=== PATIENT | male | born 1955 | race Caucasian/White ===

== ENCOUNTER 2023-08-26 12:48 | Emergency (ER) | payer MEDICARE, OTHER, SELFPAY ==
[2023-08-26] VITALS (12 sets, daily range): BP systolic 147–165; BP diastolic 79–101; PULSE 88–96; RESP 18; TEMP 36.8; O2SAT 95–98; BMI 30.5
[2023-08-26 13:08] LABS: Glucose, Point-of-Care* 228 mg/dl (60-115)
--- NOTE | 2023-08-26 13:08 | CRLHL7_ITS ---
For Patients: As a result of the Century Cures Act, medical imaging exams and procedure reports are released immediately into your electronic medical record. You may view this report before your referring provider. If you have questions, please contact your health care provider. CT HEAD DATE: 08/26/2023 CLINICAL HISTORY: Patient with vision changes. TECHNIQUE: Standard CT scanning of the head was performed. COMPARISON: None. FINDINGS: There is no intracranial hemorrhage. There is no territorial infarction. There are mild microangiopathic changes. There is diffuse parenchymal volume loss. There is no mass effect or midline shift. The calvarium is unremarkable. The orbits are unremarkable. The paranasal sinuses are unremarkable. The mastoid air cells are unremarkable. The soft tissues are unremarkable. IMPRESSION: 1. No intracranial hemorrhage or territorial infarction. 2. Mild microangiopathic changes and diffuse parenchymal volume loss. Please note that all CT scans at this facility use dose modulation, iterative reconstruction, and/or weight-based dosing when appropriate to reduce radiation dose to as low as reasonably achievable. Dictated by: Jackeline Mays MD @ 08/26/2023 13:57:01 (Electronically Signed)
--- NOTE | 2023-08-26 13:08 | CRLHL7_ITS ---
For Patients: As a result of the Century Cures Act, medical imaging exams and procedure reports are released immediately into your electronic medical record. You may view this report before your referring provider. If you have questions, please contact your health care provider. CT ANGIOGRAM HEAD DATE: 08/26/2023 CLINICAL HISTORY: Patient with vision changes. TECHNIQUE: Standard helical CT image acquisition through the intracranial circulation following intravenous administration of contrast material with bolus tracking. 2D and 3D MIP images for post-processing were performed and interpreted on an independent workstation and 3D images were permanently archived. COMPARISON: CT same day. FINDINGS: There is no proximal intracranial large vessel occlusion. There is intracranial atherosclerosis with a focal severe stenosis in the proximal basilar artery. There is no intracranial aneurysm. The right internal carotid artery is normal. The right middle cerebral artery and its branches are normal. The right anterior cerebral artery and its branches are normal. The left internal carotid artery is normal. The left middle cerebral artery and its branches are normal. The left anterior cerebral artery and its branches are normal. The anterior communicating artery is well visualized and appears normal. The right vertebral artery and PICA are normal. The left vertebral artery and PICA are normal. The left vertebral artery is dominant. The right posterior cerebral artery is normal. The left posterior cerebral artery is normal. The visualized venous structures are patent. IMPRESSION: 1. No proximal intracranial large vessel occlusion. 2. Intracranial atherosclerosis with a focal severe stenosis in the proximal basilar artery. Please note that all CT scans at this facility use dose modulation, iterative reconstruction, and/or weight-based dosing when appropriate to reduce radiation dose to as low as reasonably achievable. Dictated by: Jackeline Mays MD @ 08/26/2023 14:03:19 (Electronically Signed)
--- NOTE | 2023-08-26 13:08 | CRLHL7_ITS ---
For Patients: As a result of the Century Cures Act, medical imaging exams and procedure reports are released immediately into your electronic medical record. You may view this report before your referring provider. If you have questions, please contact your health care provider. CT ANGIOGRAM NECK DATE: 08/26/2023 CLINICAL HISTORY: Patient with vision changes. TECHNIQUE: Standard helical CT image acquisition of the neck up to the skull base after bolus intravenous contrast enhancement. 2D and 3D MIP images for post-processing were performed and interpreted on an independent workstation and 3D images were permanently archived. COMPARISON: CT same day. FINDINGS: The origins of the great vessels from the aortic arch are patent. The origin of the right vertebral artery is patent. The origin of the left vertebral artery demonstrates mild narrowing. The common carotid arteries are patent. There is plaque without stenosis at the origin of the right internal carotid artery by NASCET criteria. There is a mild (<50%) stenosis at the origin of the left internal carotid artery by NASCET criteria caused by non-calcified plaque with a >2mm residual lumen. The rest of the cervical segments of the internal carotid arteries are patent up to the skull base. The left vertebral artery is dominant. The cervical segments of the vertebral arteries are patent up to the skull base. The visualized lung apices are unremarkable. The thyroid gland is unremarkable. The soft tissues of the neck are unremarkable. There are degenerative changes in the cervical spine. IMPRESSION: 1. Mild (<50%) stenosis at the origin of the left internal carotid artery by NASCET criteria caused by non-calcified plaque with a >2mm residual lumen. 2. Mild left vertebral artery origin stenosis. Please note that all CT scans at this facility use dose modulation, iterative reconstruction, and/or weight-based dosing when appropriate to reduce radiation dose to as low as reasonably achievable. Dictated by: Jackeline Mays MD @ 08/26/2023 14:00:43 (Electronically Signed)
[2023-08-26 13:26] LABS: Basophils Absolute Auto 0.06 K/uL (0.00-0.30); Basophils Percent Auto 0.8 % (0.0-3.0); Eosinophils Absolute Auto 0.26 K/uL (0.00-0.50); Eosinophils Percent Auto 3.5 % (0.0-7.0); Hematocrit 50.1 % (37.0-53.0); Hemoglobin* 17.5 gm/dL (13.5-17.5); Immature Granulocytes Abs Auto 0.01 K/uL (0.00-0.30); Immature Granulocytes Pct Auto 0.1 %; Lymphocytes Absolute Auto 1.82 K/uL (0.90-2.90); Lymphocytes Percent Auto 24.2 % (20-44); Mean Corpuscular HGB Conc 35 gm/dL (32-36); Mean Corpuscular Hemoglobin 33 pg (26-34); Mean Corpuscular Volume 94 fL (80-100); Monocytes Percent Auto 7.3 % (0.0-11.0); Neutrophils Absolute Auto 4.81 K/uL (1.7-7.0); Neutrophils Percent Auto 64.1 % (42.0-72.0); Platelet Count* 242 K/uL (140-440); Red Blood Count 5.36 m/uL (4.30-5.90); White Blood Count* 7.51 K/uL (4.50-11.00)
[2023-08-26 13:27] LABS: Creatinine, Point-of-Care* 0.7 mg/dl (0.6-1.3)
[2023-08-26 13:28] LABS: Slide Review Reflex No
--- NOTE | 2023-08-26 13:37 | ED_ITS ---
HPI - General Adult General Chief complaint: Eye Problems Stated complaint: Intermittent blurred vision Time Seen by Provider: 08/26/23 13:00 Source: patient Mode of arrival: ambulatory Limitations: no limitations History of Present Illness HPI narrative: [age] year male coming in today concerned about vision changes. Patient has history of diabetes and hypertension. States that yesterday he had blurred vision during the entire day. Today he woke up her vision had resolved however he started seeing flashes of light and strange designs in his visual hunter bilaterally. This lasted for about 20 minutes. 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 He states that operating was too risky and so he was started on a clinical trial with some medication. Unfortunately we are unclear what this medication is as patient gets his care in [place]. 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 He takes a daily aspirin, lisinopril, metformin and Plavix. He is a long time tobacco smoker has been able to cut down to 3 of 4 cigarettes per day. Related Data Home Medications Medication Instructions Recorded Confirmed aspirin 81 mg tablet,delayed 81 mg PO DAILY 08/26/23 08/26/23 release (Adult Aspirin Regimen) clinical drug 08/26/23 lisinopril 30 mg tablet 30 mg PO DAILY 08/26/23 08/26/23 metformin 08/26/23 Allergies Allergy/AdvReac Type Severity Reaction Status Date / Time No Known Drug Allergies Allergy Verified 08/26/23 12:59 Review of Systems Status of ROS: Reports: 10 or more systems reviewed and unremarkable except as noted in History and below PFSH PFS Social History Smoking Status: Current every day smoker How often do you have a drink containing alcohol: never AUDIT-C Alcohol total score: 0 Non-prescribed substance use: denies use Exam Narrative: Exam Narrative: Well-nourished well-developed patient in no acute distress. Alert and oriented. Answers questions appropriately. Mood and affect are appropriate. Thoughts are goal oriented and rational. No tangential or magical thinking noted. Patient speaks in full sentences without needing to catch their breath. Patient wears glasses. HEENT: Normocephalic atraumatic. Pupils are equally round reactive to light. Extraocular muscles are intact. Conjunctivae are moist without any icterus noted. Moist mucous membranes. Posterior pharynx is normal. Neck is soft without any lymphadenopathy or thyromegaly. No masses are appreciated. Cardiovascular: Heart is regular rate and rhythm S1 and S2 are present without any murmurs. Lungs: Clear to auscultation bilaterally no wheezes rhonchi or rales are appreciated. Patient takes deep breaths without any discomfort. Abdomen: Soft and nontender nondistended with normal bowel sounds. Extremities: Bilateral lower extremities are without edema. Skin: Well perfused without any obvious rashes. Strength is 5/5 of the upper and lower extremities. Reflexes are 2+ and symmetric at the knees. Romberg sign is negative. Cranial nerves 3-12 are normal. There is no nystagmus either horizontally or vertically. Gait is normal. Const: Vital Signs, click to edit/add: Vital Signs - 24 hr 08/26/23 12:50 08/26/23 13:33 08/26/23 13:36 Temperature 98.2 F Pulse Rate 89 Pulse Rate [Pulse Oximeter] 96 Respiratory Rate 18 Blood Pressure 148/79 H Blood Pressure [Ri ght Upper Arm] 161/82 H Pulse Oximetry 96 98 95 Oxygen Delivery Me thod Room Air 08/26/23 13:37 08/26/23 14:00 08/26/23 14:02 Temperature Pulse Rate 92 90 90 Pulse Rate [Pulse Oximeter] Respiratory Rate Blood Pressure 147/89 H Blood Pressure [Ri ght Upper Arm] Pulse Oximetry 95 96 97 Oxygen Delivery Me thod 08/26/23 14:03 08/26/23 14:50 08/26/23 14:51 Temperature Pulse Rate 90 91 88 Pulse Rate [Pulse Oximeter] Respiratory Rate Blood Pressure 147/101 H Blood Pressure [Ri ght Upper Arm] Pulse Oximetry 96 96 95 Oxygen Delivery Me thod Course Course ED Course: CBC and chemistries were unremarkable. Head CT did not show any acute findings. CTA does show severe stenosis in the proximal basilar artery. I did speak to Dr. Lee, stroke neurologist at [facility], who recommended admission and MRI and echocardiogram in the morning. I was able to discuss this patient with his neurologist back in [place], Dr. Duvall, who stated that this is a known lesion that the patient has and he has been on Plavix, aspirin, statin therapy. He had an echo in January of last year. He was just seen for follow-up in May and he is in a clinical trial for stroke prevention. Per Dr. Duvall, he felt that the patient is likely failing this treatment and he will need to consider surgical intervention. I did discuss our recommendation from Dr. Lee, of admission and workup. Dr. Duvall felt that this would not provide any new information that he did not already have. He does recommend the patient return to [place] for further treatment. I discussed this with the patient and the patient's son. I do think that his symptoms are new and therefore do require further workup, however patient feels confident that he will get the workup if he needs in [place]. He understands that he should not be driving. Patient's son states that he will take him back to [place]. They understand that the risk of stroke in the next several days is elevated. May will follow-up as needed on the way to [place] and they will follow up once they get their with their neurologist. Patient is of sound mind to make this decision after our discussion of risks and benefits. Vital Signs Vital signs: Initial Vital Signs Temperature 98.2 F 08/26/23 12:50 Temperature Source Temporal Artery Scan 08/26/23 12:50 Pulse Rate 96 08/26/23 12:50 Respiratory Rate 18 08/26/23 12:50 Blood Pressure 161/82 H 08/26/23 12:50 Blood Pressure Mean 108 H 08/26/23 12:50 Blood Pressure Position Sitting 08/26/23 12:50 Pulse Oximetry 96 08/26/23 12:50 Oxygen Delivery Method Room Air 08/26/23 12:50 Vital Signs Temperature 98.2 F 08/26/23 12:50 Pulse Rate 96 08/26/23 12:50 Respiratory Rate 18 08/26/23 12:50 Blood Pressure 161/82 H 08/26/23 12:50 Pulse Oximetry 96 08/26/23 12:50 Oxygen Delivery Method Room Air 08/26/23 12:50 Temperature 98.2 F 08/26/23 12:50 Pulse Rate 88 08/26/23 14:51 Respiratory Rate 18 08/26/23 12:50 Blood Pressure 147/101 H 08/26/23 14:51 Pulse Oximetry 95 08/26/23 14:51 Oxygen Delivery Method Room Air 08/26/23 12:50 Medical Decision Making MDM Narrative Medical decision making narrative: 68-year-old male with a history of proximal basilar artery stenosis presenting with TIAs. Plan per above. Medical Records Medical records reviewed: Yes I reviewed the patient's medical records Lab Data Lab results reviewed: Yes I reviewed the patient's lab results Labs: Lab Results 08/26/23 08/26/23 Range/Units 13:04 13:18 WBC 7.51 (4.50-11.00) K/uL RBC 5.36 (4.30-5.90) m/uL Hgb 17.5 (13.5-17.5) gm/dL Hct 50.1 (37.0-53.0) % MCV 94 (80-100) fL MCH 33 (26-34) pg MCHC 35 (32-36) gm/dL RDW Coeff of Caterina 12.0 (11.5-15.5) % Plt Count 242 (140-440) K/uL Neut % (Auto) 64.1 (42.0-72.0) % Lymph % (Auto) 24.2 (20-44) % [place] % (Auto) 7.3 (0.0-11.0) % Eos % (Auto) 3.5 (0.0-7.0) % Baso % (Auto) 0.8 (0.0-3.0) % Neut # (Auto) 4.81 (1.7-7.0) K/uL Lymph # (Auto) 1.82 (0.90-2.90) K/uL [place] # (Auto) 0.50 (0.00-0.90) K/UL Eos # (Auto) 0.26 (0.00-0.50) K/uL Baso # (Auto) 0.06 (0.00-0.30) K/uL Abs Immat Gran (auto) 0.01 (0.00-0.30) K/uL Imm/Tot Granulo (auto) 0.1 % Sodium 139 (135-149) mmol/L Potassium 3.8 (3.6-5.1) mmol/L Chloride 99 (96-114) mmol/L Carbon Dioxide 27 (20-32) mmol/L Anion Gap 13 (7-15) mEq/L BUN 8 (7-30) mg/dL Creatinine 0.6 (0.5-1.5) mg/dL Estimated Creat Clear 64.26 Estimated GFR 104 ml/min Glucose 228 H (60-115) mg/dL Calcium 9.8 (8.4-10.6) mg/dL C-Reactive Protein < 0.5 L (0.5-1.0) mg/dL POC Glucose 228 H (60-115) mg/dl POC Creatinine 0.7 (0.6-1.3) mg/dl Imaging Data CT scan - head: Attestation: I have reviewed the pertinent imaging results. Radiologist's impression: CT HEAD DATE: 08/26/2023 CLINICAL HISTORY: Patient with vision changes. TECHNIQUE: Standard CT scanning of the head was performed. COMPARISON: None. FINDINGS: There is no intracranial hemorrhage. There is no territorial infarction. There are mild microangiopathic changes. There is diffuse parenchymal volume loss. There is no mass effect or midline shift. The calvarium is unremarkable. The orbits are unremarkable. The paranasal sinuses are unremarkable. The mastoid air cells are unremarkable. The soft tissues are unremarkable. IMPRESSION: 1. No intracranial hemorrhage or territorial infarction. 2. Mild microangiopathic changes and diffuse parenchymal volume loss. Head and neck CTA: Attestation: I have reviewed the pertinent imaging results. Radiologist's impression: CT ANGIOGRAM HEAD DATE: 08/26/2023 CLINICAL HISTORY: Patient with vision changes. TECHNIQUE: Standard helical CT image acquisition through the intracranial circulation following intravenous administration of contrast material with bolus tracking. 2D and 3D MIP images for post-processing were performed and interpreted on an independent workstation and 3D images were permanently archived. COMPARISON: CT same day. FINDINGS: There is no proximal intracranial large vessel occlusion. There is intracranial atherosclerosis with a focal severe stenosis in the proximal basilar artery. There is no intracranial aneurysm. The right internal carotid artery is normal. The right middle cerebral artery and its branches are normal. The right anterior cerebral artery and its branches are normal. The left internal carotid artery is normal. The left middle cerebral artery and its branches are normal. The left anterior cerebral artery and its branches are normal. The anterior communicating artery is well visualized and appears normal. The right vertebral artery and PICA are normal. The left vertebral artery and PICA are normal. The left vertebral artery is dominant. The right posterior cerebral artery is normal. The left posterior cerebral artery is normal. The visualized venous structures are patent. IMPRESSION: 1. No proximal intracranial large vessel occlusion. 2. Intracranial atherosclerosis with a focal severe stenosis in the proximal basilar artery. Please note that all CT scans at this facility use dose modulation, iterative reconstruction, and/or weight-based dosing when appropriate to reduce radiation dose to as low as reasonably achievable. Discharge Plan Discharge Clinical Impression: Brain TIA Patient Disposition: Home w/ Parent or Adult Condition: Stable Additional Instructions: He will need to follow-up with Dr. Duvall as soon as you return to [place]. Your risk of having a stroke in the next few days is elevated. Should you have changes in your vision or other neurologic symptoms you should be seen at the nearest emergency department. In the meantime, I would increase her aspirin 365 mg daily. Prescriptions: No Action lisinopril 30 mg tablet 30 mg PO DAILY metformin aspirin [Adult Aspirin Regimen] 81 mg tablet,delayed release (DR/EC) 81 mg PO DAILY clinical drug Follow Up/Referrals: Provider,Not a Local [Primary Care Provider] - Stand Alone Forms: Funding [employer] Info Instructions
[2023-08-26 13:40] LABS: Chloride* 99 mmol/L (96-114)
[2023-08-26 13:41] LABS: Potassium* 3.8 mmol/L (3.6-5.1); Sodium* 139 mmol/L (135-149)
[2023-08-26 13:43] LABS: Creatinine* 0.6 mg/dL (0.5-1.5); Est. Creatinine Clearance* 64.26; Estimated Glomerular Filt Rate 104 ml/min
[2023-08-26 13:44] LABS: Anion Gap 13 mEq/L (7-15); Blood Urea Nitrogen* 8 mg/dL (7-30); Calcium* 9.8 mg/dL (8.4-10.6); Carbon Dioxide* 27 mmol/L (20-32); Glucose* 228 mg/dL (60-115)
[2023-08-26 13:50] LABS: C Reactive Protein* < 0.5 mg/dL (0.5-1.0)
== END 2023-08-26 16:03 | disposition home or self-care (01) ==
PROVIDERS: Emergency Provider Family Medicine
DX: G45.9 Transient cerebral ischemic attack, unspecified (principal)
CPT/HCPCS: 36415; 70450; 70496; 70498; 80048; 82565; 82947; 85025; 86140; 94761; 99284; Q9967